=== PATIENT | female | born 1975 | race Caucasian/White ===

== ENCOUNTER 2020-10-28 22:08 | Emergency (ER) | payer OTHER | END 2020-10-28 23:04 | disposition left against medical advice (07) | LOC: ER 22:08 | DX: Z53.21 Procedure and treatment not carried out due to patient leaving prior to being seen by health care provider (principal) ==

== ENCOUNTER → 2020-10-29 | Outpatient (CLI) | payer OTHER | END | disposition home or self-care (01) | LOC: LAB SHORT 19:13 → LAB 19:13 | DX: N39.0 Urinary tract infection, site not specified (principal) | CPT/HCPCS: 87077; 87086; 87186 ==